=== PATIENT | female | born 1955 | race Caucasian/White ===

== ENCOUNTER 2018-09-18 07:09 | Day surgery (SDC) | payer BC ==
[~2018-09-18] VITALS: Ht 162.6 cm; Wt 63.5 kg
[~2018-09-18 07:09] MED LIST: ALEN70TA57; CALC-210 PO; HYOS125TA; NS 1,000 ML IV ONE
[2018-09-18] MEDS ORDERED: PROPOFOL 200 MG/20 ML VIAL As Ordered ONE (07:45)
[2018-09-18] MEDS ORDERED: LIDOCAINE 2% INJ 100 MG/5 ML SDV (FOR ANES.) As Ordered ONE (07:45)
--- NOTE | 2018-09-18 09:21 | ROOR ---
Patient Name: Antonia Arango Procedure Date: 09/18/2018 8:48 AM Date of : 1955 Age: 62 Room: [facility] Gender: Female Note Status: Finalized Procedure: Total Colonoscopy to Cecum + Biopsy Polypectomy Indications: Colon cancer screening in patient at increased risk: Colorectal cancer in brother, Last colonoscopy: 2013 Providers: Janusz Spangler MD Referring MD: Henri Corona MD Requesting Provider: Medicines: Monitored Anesthesia Care Complications: No immediate complications. Procedure: Pre-Anesthesia Assessment: - The heart rate, respiratory rate, oxygen saturations, blood pressure, adequacy of pulmonary ventilation, and response to care were monitored throughout the procedure. The Colonoscope was introduced through the anus and advanced to the cecum, identified by appendiceal orifice and ileocecal valve. The colonoscopy was performed without difficulty. The patient tolerated the procedure well. The quality of the bowel preparation was excellent. Findings: The perianal and digital rectal examinations were normal. Non-bleeding internal hemorrhoids were found during retroflexion. The hemorrhoids were small and Grade I (internal hemorrhoids that do not prolapse). Scattered small-mouthed diverticula were found in the recto-sigmoid colon, sigmoid colon and descending colon. Two sessile polyps were found in the hepatic flexure. The polyps were small in size. These polyps were removed with a jumbo cold forceps. Resection and retrieval were complete. The exam was otherwise without abnormality on direct and retroflexion views. Impression: - Non-bleeding internal hemorrhoids. - Diverticulosis in the recto-sigmoid colon, in the sigmoid colon and in the descending colon. - Two small polyps at the hepatic flexure, removed with a jumbo cold forceps. Resected and retrieved. - The examination was otherwise normal on direct and retroflexion views. - The exam was otherwise normal to the cecum. Recommendation: - Patient has a contact number available for emergencies. The signs and symptoms of potential delayed complications were discussed with the patient. Return to normal activities tomorrow. Written discharge instructions were provided to the patient. - High fiber diet. - Discharge patient to home. - Continue present medications. - Await pathology results. - Telephone GI clinic for pathology results in 1 week. - Repeat colonoscopy in 5 years for surveillance based on pathology results. - Return to referring physician. - The findings and recommendations were discussed with the patient's family. Janusz Spangler MD Janusz Spangler MD 09/18/2018 9:20:34 AM This report has been signed electronically. Number of Addenda: 0 Note Initiated On: 09/18/2018 8:48 AM Estimated Blood Loss: Estimated blood loss: none.
[2018-09-18 09:40] VITALS: BP 167/94
== END 2018-09-18 09:59 | disposition home or self-care (01) ==
LOC: M OPP 07:09
PROVIDERS: ATTEND Internal Medicine Gastroenterology
DX: Z80.0 Family history of malignant neoplasm of digestive organs (principal); D12.3 Benign neoplasm of transverse colon; K64.0 First degree hemorrhoids; K57.30 Diverticulosis of large intestine without perforation or abscess without bleeding; Z79.899 Other long term (current) drug therapy

== ENCOUNTER → 2018-12-13 | Outpatient (REF) | payer BC ==
[~2018-12-13] MED LIST changes: -ALEN70TA57; +ALEN70TA74; -CALC-210 PO; +CALC-239 PO; -NS 1,000 ML IV ONE
== END ==
LOC: M SFHCWAGY 13:11
PROVIDERS: ATTEND Nurse Practitioner Women's Health
DX: R30.0 Dysuria (principal)

== ENCOUNTER → 2019-04-23 | Outpatient (REF) | payer BC | LOC: M LAB REF 13:08 | PROVIDERS: ATTEND Physician Assistant | DX: N39.0 Urinary tract infection, site not specified (principal) ==

== ENCOUNTER → 2019-07-17 | Outpatient (REF) | payer BC | LOC: M LAB REF 12:45 | PROVIDERS: ATTEND Family Medicine | DX: R74.8 Abnormal levels of other serum enzymes (principal) ==

== ENCOUNTER 2020-03-31 07:10 | Day surgery (SDC) | payer MEDICARE ==
[~2020-03-31] VITALS: Ht 162.6 cm; Wt 60.8 kg
[~2020-03-31 07:10] MED LIST changes: +B-12100T2 PO; +ESTETAB4 PO; +ESTR1CRE PV; +HYOS0.1258 PO; +MIRA3350 PO
[2020-03-31 09:00] VITALS: BP 159/81
[2020-03-31] MEDS ORDERED: LIDOCAINE 2% 100MG/5ML SDV (FOR ANES.) As Ordered ONE (09:12)
[2020-03-31] MEDS ORDERED: propofoL 500 MG/50 ML VIAL As Ordered ONE (09:12)
--- NOTE | 2020-04-16 11:29 | ROOR ---
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 Procedure: Pre-Anesthesia Assessment: - The heart rate, respiratory rate, oxygen saturations, blood pressure, adequacy of pulmonary ventilation, and response to care were monitored throughout the procedure. The Colonoscope was introduced through the anus and advanced to the cecum, identified by appendiceal orifice and ileocecal valve. The colonoscopy was performed without difficulty. The patient tolerated the procedure well. The quality of the bowel preparation was excellent. Findings: The perianal and digital rectal examinations were normal. Non-bleeding internal hemorrhoids were found during retroflexion. The hemorrhoids were small and Grade I (internal hemorrhoids that do not prolapse). Multiple small and large-mouthed diverticula were found in the recto-sigmoid colon, sigmoid colon and descending colon. A small polyp was found in the hepatic flexure. The polyp was sessile. The polyp was removed with a cold snare. Resection and retrieval were complete. To prevent bleeding after the polypectomy, one hemostatic clip was successfully placed (MR conditional). There was no bleeding at the end of the procedure. The exam was otherwise without abnormality on direct and retroflexion views. Impression: - Non-bleeding internal hemorrhoids. - Diverticulosis in the recto-sigmoid colon, in the sigmoid colon and in the descending colon. - One small polyp at the hepatic flexure, removed with a cold snare. Resected and retrieved. Clip (MR conditional) was placed. - The examination was otherwise normal on direct and retroflexion views. - The exam was otherwise normal to the cecum. Recommendation: - Patient has a contact number available for emergencies. The signs and symptoms of potential delayed complications were discussed with the patient. Return to normal activities tomorrow. Written discharge instructions were provided to the patient. - High fiber diet. - Discharge patient to home. - Continue present medications. - Await pathology results. - Telephone GI clinic for pathology results in 1 week. - Repeat colonoscopy in 5 years for surveillance based on pathology results. - Return to referring physician. - The findings and recommendations were discussed with the patient. Janusz Spangler MD Janusz Spangler MD 03/31/2020 8:40:33 AM Electronically signed by Janusz Spangler MD Number of Addenda: 0 Note Initiated On: 03/31/2020 8:11 AM Estimated Blood Loss: Estimated blood loss: none.
== END 2020-03-31 09:07 | disposition home or self-care (01) ==
LOC: M OPP 07:10
PROVIDERS: ATTEND Internal Medicine Gastroenterology
DX: Z86.010 Personal history of colon polyps (principal); Z80.0 Family history of malignant neoplasm of digestive organs; K64.0 First degree hemorrhoids; K63.5 Polyp of colon; K57.30 Diverticulosis of large intestine without perforation or abscess without bleeding; Z09 Encounter for follow-up examination after completed treatment for conditions other than malignant neoplasm; Z79.899 Other long term (current) drug therapy

== ENCOUNTER → 2021-02-23 | Outpatient (CLI) | payer MEDICARE ==
[~2021-02-23] MED LIST changes: -ALEN70TA74; +ALEN70TA82
--- NOTE | 2021-02-23 14:13 | REP ---
INDICATION: LOW BACK PAIN. COMPARISON: None. TECHNIQUE: Five views lumbosacral spine. FINDINGS: No compression fracture. There is minimal anterolisthesis of L4 on L5 and L5 on S1. There is slight disc space narrowing at L1-2, L2-3 and L4-5. There is sclerosis and spurring at the posterior facet joints of L3-4, L4-5 and L5-S1. The posterior elements appear intact. There is mild curvature toward the left. IMPRESSION: Degenerative changes as above. <Electronically signed by Jose Cruz Vega > 02/23/21 [id number]
== END ==
LOC: M WUC 11:33
PROVIDERS: ATTEND Physician Assistant
DX: M54.5 Low back pain (principal)

== ENCOUNTER → 2022-09-03 | Outpatient (REF) | payer MEDICARE | LOC: M SFHCDERM 16:59 | PROVIDERS: ATTEND Nurse Practitioner Family | DX: D22.62 Melanocytic nevi of left upper limb, including shoulder (principal) ==

== ENCOUNTER → 2023-07-29 | Outpatient (CLI) | payer MEDICARE | LOC: M CARPUL 10:55 | PROVIDERS: ATTEND Family Medicine | DX: I35.8 Other nonrheumatic aortic valve disorders (principal) ==

== ENCOUNTER 2023-12-12 06:46 | Day surgery (SDC) | payer MEDICARE ==
[~2023-12-12] VITALS: Ht 162.6 cm; Wt 83.8 kg
[~2023-12-12 06:46] MED LIST changes: +BIOT1CAP2 PO; +ESTE500T3 PO; -ESTETAB4 PO
[2023-12-12] MEDS: NS 1,000 ML IV ONE (07:05)
[2023-12-12] MEDS ORDERED: propofoL 200 MG/20 ML VIAL As Ordered ONE (07:12)
[2023-12-12] MEDS ORDERED: LIDOCAINE 2% INJ 100 MG/5 ML SYRINGE As Ordered ONE (07:12)
[2023-12-12] MEDS ORDERED: GLYCOPYRROLATE INJ 0.2 MG/ML 2 ML VIAL As Ordered ONE (07:38)
[2023-12-12 07:57] VITALS: TEMP 97.6
[2023-12-12 08:19] VITALS: BP 125/78; O2SAT 98
== END 2023-12-12 08:20 | disposition home or self-care (01) ==
LOC: M OPP 06:46
PROVIDERS: ATTEND Internal Medicine Gastroenterology
DX: Z12.11 Encounter for screening for malignant neoplasm of colon (principal); K63.5 Polyp of colon; K64.0 First degree hemorrhoids; K57.30 Diverticulosis of large intestine without perforation or abscess without bleeding; Z86.010 Personal history of colon polyps; Z80.0 Family history of malignant neoplasm of digestive organs; Z90.710 Acquired absence of both cervix and uterus; Z79.899 Other long term (current) drug therapy